=== PATIENT | female | born 1965 | race Caucasian/White ===

== ENCOUNTER → 2021-12-08 | Outpatient (CLI) | payer OTHER ==
[2021-12-08 17:38] LABS: HEMOGLOBIN 13.8 gm/dl (12.3-15.3); RED BLOOD COUNT 5.14 M/UL (4.00-5.10); WHITE BLOOD COUNT 7.2 K/UL (4.5-11.0)
== END ==
LOC: LAB 17:09
PROVIDERS: Orthopaedic Surgery
DX: Z53.9 Procedure and treatment not carried out, unspecified reason (principal)
CPT/HCPCS: 36415; 85027; 85652; 86140

== ENCOUNTER → 2022-02-18 | Outpatient (CLI) | payer OTHER ==
[~2022-02-18] MED LIST: HALOBETASOL TOP; ISOSORBIDE MONO60 MG PO; KENALOG CREAM 080 GM TOP; LISINOPRIL40 MG PO; LOPRESSOR50 MG PO; LOW DOSE ASPIRI81 MG PO; MELOXICAM7.5 MG PO; NEXIUM20 MG PO; NITROSTAT0.4 MG PO; NORVASC5 MG PO; NOVOLOG MI100 UNIT/1 SC; PIMECROLIMUS30 GM TOP
[2022-02-18 11:07] LABS: HEMOGLOBIN 13.7 gm/dl (12.3-15.3); RED BLOOD COUNT 5.28 M/UL (4.00-5.10); WHITE BLOOD COUNT 7.7 K/UL (4.5-11.0)
== END ==
LOC: OPSV2 09:52
PROVIDERS: Orthopaedic Surgery
DX: Z01.818 Encounter for other preprocedural examination (principal); M17.11 Unilateral primary osteoarthritis, right knee
CPT/HCPCS: 71046; 80048; 83036; 85025; 93005

== ENCOUNTER 2022-02-26 08:14 | Day surgery (SDC) | payer OTHER ==
[~2022-02-26] VITALS: Ht 165.1 cm; Wt 96.6 kg
[~2022-02-26 08:14] MED LIST changes: +NOVOLOG MI100 UNIT/1 SQ
[2022-02-26] MEDS ORDERED: TYLENOL EXTRA500 MG PO (16:38)
--- NOTE | 2022-02-26 18:04 | NUR ---
1400 INCENTIVE SPIROMETER GIVEN TO PATIENT. PATIENT VERBALIZED AND DEMONSTRATED KNOWLEDGE OF USE OF INCENTIVE SPIROMETER.
[2022-02-27 03:13] LABS: HEMOGLOBIN 12.3 gm/dl (12.3-15.3); RED BLOOD COUNT 4.79 M/UL (4.00-5.10); WHITE BLOOD COUNT 8.6 K/UL (4.5-11.0)
[2022-02-27] MEDS ORDERED: ASPIR-TRIN325 MG PO (07:03)
[2022-02-27] MEDS ORDERED: HYDROCODON-ACE1 EAC2 PO (07:04)
== END 2022-02-27 11:27 | disposition home or self-care (01) ==
LOC: OR 08:14 → M/S 14:01 → OR 19:00
PROVIDERS: Orthopaedic Surgery
DX: M17.11 Unilateral primary osteoarthritis, right knee (principal); G89.18 Other acute postprocedural pain; I10 Essential (primary) hypertension; K21.9 Gastro-esophageal reflux disease without esophagitis; E11.9 Type 2 diabetes mellitus without complications; I25.10 Atherosclerotic heart disease of native coronary artery without angina pectoris; Z79.4 Long term (current) use of insulin; Z79.82 Long term (current) use of aspirin; Z79.899 Other long term (current) drug therapy; Z88.2 Allergy status to sulfonamides
CPT/HCPCS: 73560; 80048; 82962; 85027; 86850; 86900; 86901; 97116; 97116-GP-CQ; 97162; 97166; 97530-GP-CQ; 97535; C1713; C1776; J0690; J1100; J1200; J1885; J2250; J2274; J2405; J2704; J2710; J2795; J3010; J3475